=== PATIENT | female | born 1945 | race Caucasian/White ===

== ENCOUNTER → 2017-10-11 | Outpatient (CLI) | payer BC ==
[~2017-10-11] MED LIST: CALC600T9 PO; DENOINJ; EVER10TA PO; EXM/25 PO; MULT-506 PO; OMEG10007 PO; POTTAB2 PO; VALA1TAB PO
== END | disposition home or self-care (01) ==
LOC: C.LAB 15:51
PROVIDERS: ATTEND Nurse Practitioner Family
DX: R19.7 Diarrhea, unspecified (principal); C50.919 Malignant neoplasm of unspecified site of unspecified female breast

== ENCOUNTER → 2017-10-26 | Outpatient (CLI) | payer BC ==
[2017-10-26 14:49] LABS: BASO % 0.2 %; BASO ABS # 0.01 K/uL (0-0.2); EOS % 0.4 %; EOS ABS # 0.02 K/uL (0-0.5); HEMATOCRIT 30.8 % (37-47); HEMOGLOBIN 10.4 g/dL (12.0-16.0); IG# 0.02 K/uL (0.00-0.02); LYMPH % 9.9 %; LYMPH ABS # 0.51 K/uL (1.2-3.4); MEAN CELL VOLUME 100.3 fL (80-100); MEAN CORPUSCULAR HEMOGLOBIN 33.9 pg (25-34); MEAN CORPUSCULAR HGB CONC 33.8 g/dl (32-36); MEAN PLATELET VOLUME 10.2 fL (7.4-10.4); MONO % 2.7 %; MONO ABS # 0.14 K/uL (0.11-0.59); NEUT % 86.4 %; NEUT ABS # 4.43 K/uL (1.4-6.5); NUCLEATED RED BLOOD CELL ABS 0.04 K/uL (0-0); PLATELET COUNT 196 K/uL (130-400); RED CELL DISTRIBUTION WIDTH CV 26.5 % (11.5-14.5); RED CELL DISTRIBUTION WIDTH SD 92.6 fL (36.4-46.3); WHITE BLOOD COUNT 5.13 K/uL (4.8-10.8)
[2017-10-26 15:28] LABS: ALKALINE PHOSPHATASE 247 U/L (45-117); ALT/SGPT 49 U/L (12-78); AST/SGOT 106 U/L (15-37); BLOOD UREA NITROGEN 17 mg/dl (7-18); CALCIUM 7.4 mg/dl (8.5-10.1); CARBON DIOXIDE 24 mmol/L (21-32); CREATININE 0.63 mg/dl (0.60-1.20); GLUCOSE 109 mg/dl (70-99); POTASSIUM 2.2 mmol/L (3.5-5.1); SODIUM 137 mmol/L (136-145); TOTAL PROTEIN 6.3 gm/dl (6.4-8.2)
--- NOTE | 2017-11-03 15:54 | CODING QUERY NO DIAGNOSIS ---
TREATMENT RENDERED WITHOUT A DIAGNOSIS 46 To promote full compliance with coding requirements relating to patient care, physician participation is requested in all cases of vasc tech uncertainty. Please assist us with providing a diagnosis/symptom for the test(s) below: A diagnosis/symptom was not documented on your Order. A valid diagnosis/symptom is required to bill all insurances. Please remember that we are unable to code a diagnosis of rule out, probable, possible, questionable, or suspected. DOS 10/26/17 Tests that require a diagnosis: * CBC WITH AUTO DIFF DIAGNOSIS: * COMP METABOLIC DIAGNOSIS: Provider Signature: Date: Thank you Yanelis Cristina [facility] Information Management Once completed, please kindly fax back to [phone] For questions please call [phone]
== END | disposition home or self-care (01) ==
LOC: C.LAB 14:05
PROVIDERS: ATTEND Internal Medicine Hematology & Oncology
DX: C50.919 Malignant neoplasm of unspecified site of unspecified female breast (principal)